=== PATIENT | male | born 1995 | race African-American/Black ===

== ENCOUNTER 2017-06-20 11:00 | Emergency (ER) | payer OTHER, SELFPAY ==
[2017-06-20] MEDS ORDERED: Ondansetron ODT 4 MG TAB ONE (11:20)
== END 2017-06-20 11:30 | disposition home or self-care (01) ==
LOC: MADERS 11:00
DX: R11.2 Nausea with vomiting, unspecified (principal); R19.7 Diarrhea, unspecified; F17.210 Nicotine dependence, cigarettes, uncomplicated
CPT/HCPCS: 99283; Q0162

== ENCOUNTER 2017-10-29 18:59 | Emergency (ER) | payer SELFPAY ==
[~2017-10-29 18:59] MED LIST: Sodium Chloride 0.9% 1,000 ML BAG ONE; Sodium Chloride 0.9% 100 ML BAG ONE
[2017-10-29] MEDS ORDERED: Ondansetron HCl/PF 4 MG/2 ML Vial ONE (20:00)
[2017-10-29] MEDS ORDERED: methylPREDNISolone Sod Succ/PF 125 MG/2 ML VIAL ONE (20:00)
[2017-10-29] MEDS ORDERED: cefTRIAXone\\ROCEPHIN 2 GM VIAL ONE (20:00)
[2017-10-29] MEDS ORDERED: Ketorolac Tromethamine 30 MG/ML VIAL ONE (20:00)
[2017-10-29] MEDS ORDERED: Dexamethasone 10 MG/ML VIAL ONE (20:00)
[2017-10-29 20:10] LABS: #Basophils 0.2 thou/uL (0.0-0.2); #Eosinphils 0.2 thou/uL (0.0-0.7); #Lymphocytes 2.8 thou/uL (1.20-3.40); #Monocytes 0.7 thou/uL (0.11-0.59); #Neutrophils 4.2 thou/uL (1.40-6.50); %Basophils 2.3 % (0.0-1.0); %Eosinophils 2.8 % (0.0-10.0); %Lymphocytes 34.8 % (21.0-51.0); %Monocytes 8.1 % (0.0-10.0); Hemoglobin 15.1 g/dL (14.0-18.0); Mean Corpuscular HGB CONC 34.3 g/dL (32.0-36.0); Mean Corpuscular Hemoglobin 31.8 pg (27.0-31.0); Mean Corpuscular Volume 92.8 fl (80.0-94.0); Mean Platelet Volume 7.1 fL (7.4-10.4); Platelet Count 268 thou/uL (130-400); RBC Distribution Width 12.3 % (11.5-14.5); Red Blood Cell (RBC) Count 4.74 mill/uL (4.70-6.10)
[2017-10-29 20:19] LABS: ALT (SGPT) 17 U/L (8-55); AST (SGOT) 14 U/L (5-34); Albumin 4.2 g/dL (3.5-5.0); Alkaline Phosphatase 88 U/L (40-150); Anion Gap 13 mmol/L (10-20); BUN (Urea Nitrogen) 10 mg/dL (8.9-20.6); Bilirubin, Total 0.5 mg/dL (0.2-1.2); Calc. Creatinine Clearance 0 mL/min (70-130); Calcium 9.3 mg/dL (7.8-10.44); Carbon Dioxide 28 mmol/L (22-29); Chloride 105 mmol/L (98-107); Estimated GFR-MDRD Greater than 90; Globulin 2.5 g/dL (2.4-3.5); Glucose 101 mg/dL (70-105); Protein, Total 6.7 g/dL (6.0-8.3); Sodium 142 mmol/L (136-145)
== END 2017-10-29 21:15 | disposition home or self-care (01) ==
LOC: MADERS 18:59
DX: L04.0 Acute lymphadenitis of face, head and neck (principal); F17.210 Nicotine dependence, cigarettes, uncomplicated
CPT/HCPCS: 36415; 80053; 85025; 96365; 96375; J0696; J1100; J1885; J2405; J2930; J7050

== ENCOUNTER 2018-04-22 03:39 | Emergency (ER) | payer SELFPAY | END 2018-04-22 04:11 | disposition home or self-care (01) | LOC: MADERS 03:39 | DX: M43.6 Torticollis (principal); F17.210 Nicotine dependence, cigarettes, uncomplicated | CPT/HCPCS: 99283 ==

== ENCOUNTER 2019-07-24 14:06 | Emergency (ER) | payer SELFPAY | END 2019-07-24 14:50 | disposition home or self-care (01) | LOC: MADERS 14:06 | DX: L04.9 Acute lymphadenitis, unspecified (principal); F17.210 Nicotine dependence, cigarettes, uncomplicated | CPT/HCPCS: 99283 ==

== ENCOUNTER 2020-07-06 12:12 | Emergency (ER) | payer SELFPAY ==
[~2020-07-06 12:12] MED LIST changes: -Sodium Chloride 0.9% 100 ML BAG ONE
[2020-07-06] MEDS ORDERED: Tetracaine 0.5% OPHTH SOLN/PF 4 ML BOT ONE (12:37)
[2020-07-06] MEDS ORDERED: Fluorescein Opthalmic Strip ONE (12:37)
[2020-07-06] MEDS ORDERED: Acetaminophen 500 MG TAB ONE (13:08)
== END 2020-07-06 13:45 | disposition home or self-care (01) ==
LOC: MADERS 12:12
DX: T26.42XA Burn of left eye and adnexa, part unspecified, initial encounter (principal); F17.210 Nicotine dependence, cigarettes, uncomplicated; Z71.6 Tobacco abuse counseling; X19.XXXA Contact with other heat and hot substances, initial encounter; Y92.511 Restaurant or cafe as the place of occurrence of the external cause; Y99.0 Civilian activity done for income or pay
CPT/HCPCS: 99406; J7050

== ENCOUNTER 2020-09-22 20:32 | Emergency (ER) | payer OTHER | END 2020-09-22 21:14 | disposition home or self-care (01) | LOC: MADERS 20:32 | DX: S30.0XXA Contusion of lower back and pelvis, initial encounter (principal); F17.210 Nicotine dependence, cigarettes, uncomplicated; W22.8XXA Striking against or struck by other objects, initial encounter | CPT/HCPCS: 99283 ==

== ENCOUNTER 2021-01-09 15:29 | Emergency (ER) | payer OTHER, SELFPAY | END 2021-01-09 17:20 | disposition home or self-care (01) | LOC: MADERS 15:29 | DX: S63.601A Unspecified sprain of right thumb, initial encounter (principal); F17.210 Nicotine dependence, cigarettes, uncomplicated; X58.XXXA Exposure to other specified factors, initial encounter ==

== ENCOUNTER 2021-04-09 17:58 | Emergency (ER) | payer SELFPAY ==
[2021-04-09] MEDS ORDERED: Ibuprofen 800 MG TAB ONE (18:43)
== END 2021-04-09 18:41 | disposition home or self-care (01) ==
LOC: MADERS 17:58
DX: M94.0 Chondrocostal junction syndrome [Tietze] (principal); F17.210 Nicotine dependence, cigarettes, uncomplicated
CPT/HCPCS: 93005; 99406

== ENCOUNTER 2021-09-06 14:48 | Emergency (ER) | payer SELFPAY ==
[2021-09-06 15:56] LABS: #Basophils 0.2 thou/uL (0.0-0.2); #Eosinphils 0.2 thou/uL (0.0-0.7); #Lymphocytes 2.9 thou/uL (1.20-3.40); #Monocytes 0.7 thou/uL (0.11-0.59); #Neutrophils 3.7 thou/uL (1.40-6.50); %Basophils 2.7 % (0.0-1.0); %Lymphocytes 37.5 % (21.0-51.0); %Monocytes 9.3 % (0.0-10.0); %Neutrophils 47.4 % (42.0-75.0); Hemoglobin 15.3 g/dL (14.0-18.0); Mean Corpuscular HGB CONC 32.2 g/dL (32.0-36.0); Mean Corpuscular Hemoglobin 30.1 pg (27.0-31.0); Mean Corpuscular Volume 93.5 fL (78.0-98.0); Mean Platelet Volume 6.8 fL (7.4-10.4); Platelet Count 310 thou/uL (130-400); RBC Distribution Width 12.4 % (11.5-14.5); Red Blood Cell (RBC) Count 5.09 mill/uL (4.70-6.10); White Blood Cell (WBC) Count 7.7 thou/uL (4.8-10.8)
[2021-09-06 15:56] LABS: Bilirubin Negative (Negative); Blood, Urine Trace (Negative); Clarity Clear (Clear); Glucose, Urine (Dipstick) Negative (Negative); Ketone, Urine Negative (Negative); Leukocyte Negative (Negative); Nitrite Negative (Negative); Protein, Urine (Dipstick) Trace mg/dL (Neg-Trace)
[2021-09-06 16:04] LABS: Amphetamine Not Detected (NotDetected); Barbiturates Screen Not Detected (NotDetected); Benzodiazepine Screen Not Detected (NotDetected); Cocaine Metabolite Screen Not Detected (NotDetected); Medtox Control Line Valid? VALID (VALID); Methadone Not Detected (NotDetected); Methamphetamine Not Detected (NotDetected); Opiate Screen Not Detected (NotDetected); Oxycodone Screen Not Detected (NotDetected); Phencyclidine (PCP) Not Detected (NotDetected); THC/Cannabinoid Screen Detected (NotDetected); Tricyclic Screen Not Detected (NotDetected)
[2021-09-06 16:04] LABS: CK (CPK) 174 U/L (30-200); CRP (Inflammatory) Less than 0.50 mg/dL (= or < 0.5)
[2021-09-06 16:05] LABS: Bacteria/HPF Rare-Few HPF (None Seen); RBC/HPF 0-3 HPF (0-3); Squamous Epithelial 0-3 HPF (0-3); WBC/HPF 0-3 HPF (0-3)
[2021-09-06 16:06] LABS: Mucous/LPF 2+ LPF (<2+)
[2021-09-06 16:06] LABS: ALT (SGPT) 28 U/L (8-55); AST (SGOT) 18 U/L (5-34); Albumin 4.2 g/dL (3.5-5.0); Alkaline Phosphatase 82 U/L (40-110); Anion Gap 11 mmol/L (10-20); BUN (Urea Nitrogen) 8 mg/dL (8.9-20.6); Bilirubin, Total 0.4 mg/dL (0.2-1.2); Calc. Creatinine Clearance 0 mL/min (70-130); Calcium 8.6 mg/dL (7.8-10.44); Carbon Dioxide 29 mmol/L (22-29); Chloride 106 mmol/L (98-107); Globulin 2.4 g/dL (2.4-3.5); Glucose 90 mg/dL (70-105); Protein, Total 6.6 g/dL (6.0-8.3); Sodium 142 mmol/L (136-145)
[2021-09-06] MEDS ORDERED: Ketorolac Tromethamine 30 MG/ML VIAL ONE (16:22)
[2021-09-06] MEDS ORDERED: Ondansetron ODT 4 MG TAB ONE (16:22)
== END 2021-09-06 16:46 | disposition home or self-care (01) ==
LOC: MADERS 14:48
DX: M94.0 Chondrocostal junction syndrome [Tietze] (principal); F12.10 Cannabis abuse, uncomplicated; F17.210 Nicotine dependence, cigarettes, uncomplicated
CPT/HCPCS: 36415; 71045; 80053; 80306; 81003; 81015; 82550; 83605; 84484; 85025; 85379; 86140; 93005; 96372; J1885; Q0162

== ENCOUNTER 2022-01-22 11:32 | Emergency (ER) | payer OTHER, SELFPAY | END 2022-01-22 12:22 | disposition home or self-care (01) | LOC: MADERS 11:32 | DX: S60.222A Contusion of left hand, initial encounter (principal); F17.210 Nicotine dependence, cigarettes, uncomplicated; W01.0XXA Fall on same level from slipping, tripping and stumbling without subsequent striking against object, initial encounter ==

== ENCOUNTER 2022-04-12 20:43 | Emergency (ER) | payer BC ==
[2022-04-12] MEDS ORDERED: Ketamine 50 MG/ML (10ML VIAL) ONE (23:41)
== END 2022-04-13 01:29 | disposition home or self-care (01) ==
LOC: MADERS 20:43
DX: S62.314A Displaced fracture of base of fourth metacarpal bone, right hand, initial encounter for closed fracture (principal); S63.054A Dislocation of other carpometacarpal joint of right hand, initial encounter; W22.03XA Walked into furniture, initial encounter; F17.210 Nicotine dependence, cigarettes, uncomplicated
CPT/HCPCS: 26641; J7050

== ENCOUNTER 2022-06-27 16:28 | Emergency (ER) | payer BC | END 2022-06-27 17:25 | disposition home or self-care (01) | LOC: MADERS 16:28 | DX: M54.2 Cervicalgia (principal); F17.210 Nicotine dependence, cigarettes, uncomplicated | CPT/HCPCS: 99283 ==

== ENCOUNTER 2022-12-09 02:26 | Emergency (ER) | payer BC, SELFPAY ==
[2022-12-09] MEDS ORDERED: Boostrix 0.5 ML (Tdap) VIAL (>/=7 yrs of age) ONE (02:48)
[2022-12-09] MEDS ORDERED: Lidocaine 1% PF 5 ML VIAL ONE (02:59)
[2022-12-09] MEDS ORDERED: Bacitracin 1 PK ONE (03:22)
== END 2022-12-09 03:27 | disposition home or self-care (01) ==
LOC: MADERS 02:26
DX: S61.212A Laceration without foreign body of right middle finger without damage to nail, initial encounter (principal); F17.210 Nicotine dependence, cigarettes, uncomplicated; W25.XXXA Contact with sharp glass, initial encounter; Y93.89 Activity, other specified; Z23 Encounter for immunization
CPT/HCPCS: 12001; 90471; 90715

== ENCOUNTER 2022-12-13 12:07 | Emergency (ER) | payer SELFPAY ==
[2022-12-13] MEDS ORDERED: Bacitracin 1 PK ONE (12:43)
== END 2022-12-13 12:46 | disposition home or self-care (01) ==
LOC: MADERS 12:07
DX: S61.212D Laceration without foreign body of right middle finger without damage to nail, subsequent encounter (principal); W22.09XD Striking against other stationary object, subsequent encounter
CPT/HCPCS: 99282

== ENCOUNTER 2024-11-24 19:18 | Emergency (ER) | payer OTHER, SELFPAY ==
[2024-11-24] MEDS ORDERED: Amoxicillin/Potassium Clav 875 MG TAB ONE (20:15)
[2024-11-24] MEDS ORDERED: Ketorolac Tromethamine 30 MG (1 mL) VIAL ONE (20:15)
== END 2024-11-24 20:25 | disposition home or self-care (01) ==
LOC: MADERS 19:18
DX: K08.89 Other specified disorders of teeth and supporting structures (principal); K03.81 Cracked tooth; F17.290 Nicotine dependence, other tobacco product, uncomplicated; F17.210 Nicotine dependence, cigarettes, uncomplicated
CPT/HCPCS: 96372; 99282; J1885